=== PATIENT | female | born 1945 | race Caucasian/White ===

== ENCOUNTER 2018-02-11 14:13 | Emergency (ER) | payer MEDICARE, OTHER ==
[~2018-02-11] VITALS: Ht 171.4 cm; Wt 79.5 kg
[~2018-02-11 14:13] MED LIST: BUPR300T PO; CITA20TA4 PO; DICL1SOL3 TOPICAL; LEVO-168 PO; OMEP40CA2 PO
[2018-02-11] MEDS ORDERED: IOHEXOL 350 MG/ML 10 ML VIAL (for RAD DIAG) IVCONTRAST ONE (14:14)
[2018-02-11 14:37] VITALS: BP 176/104; PULSE 98; RESP 18; TEMP 98.1; O2SAT 98
[2018-02-11] MEDS ORDERED: MELO7.5T27 PO (15:46)
[2018-02-11] MEDS ORDERED: SIMV20TA PO (15:46)
[2018-02-11 15:53] VITALS: BP 163/79; PULSE 95; RESP 18; TEMP 98.2; O2SAT 96
[2018-02-11] MEDS ORDERED: ONDANSETRON HCL 4 MG/2 ML VIAL IV PUSH ONE (16:00)
[2018-02-11] MEDS ORDERED: SODIUM CHLOR 0.9% 1000 ML INJ 1,000 ML IV ONE (16:00)
[2018-02-11 16:41] LABS: AUTOMATED NEUTROPHIL # 9.1 TH/MM3 (1.8-7.7); BASOPHIL % 0.4 % (0.0-2.0); EOSINOPHIL # 0.1 TH/MM3 (0-0.4); EOSINOPHIL % 0.5 % (0.0-4.0); HEMATOCRIT 42.1 % (35.0-46.0); LYMPH % 13.5 % (9.0-44.0); LYMPHOCYTE # 1.6 TH/MM3 (1.0-4.8); MEAN CELL VOLUME 97.7 FL (80.0-100.0); MEAN CORPUSCULAR HEMOGLOBIN 32.5 PG (27.0-34.0); MEAN CORPUSCULAR HGB CONC 33.3 % (32.0-36.0); MONO % 6.5 % (0.0-8.0); MONOCYTE # 0.8 TH/MM3 (0-0.9); NEUT % 79.1 % (16.0-70.0); PLATELET COUNT 347 TH/MM3 (150-450); RED BLOOD COUNT 4.31 MIL/MM3 (4.00-5.30); RED CELL DISTRIBUTION WIDTH 12.7 % (11.6-17.2); WHITE BLOOD COUNT 11.5 TH/MM3 (4.0-11.0)
--- NOTE | 2018-02-11 16:42 | PD ---
HPI Chief Complaint: Abdominal Pain Time Seen by Provider: 15:26 Travel History International Travel<30 days: No Contact w/Intl Traveler<30days: No Traveled to known affect area: No History of Present Illness HPI Patient is a 72-year-old female who comes in complaining of lower abdominal cramping with diarrhea and nausea and vomiting. She says she has history of diverticulitis, so this made her nervous. However, she says this does not feel like her diverticulitis. She says she has had about 9 episodes of diarrhea and a few episodes of vomiting. She denies seeing any blood in her stool. She says the pain that she has is really just a cramping to the lower abdomen. She denies fever chills. Last thing she ate was cereal this morning. She denies any urinary symptoms. She has not been on antibiotics recently. Severity is moderate. PFSH Past Medical History Anxiety: Yes Diverticulitis: Yes GERD: Yes Thyroid Disease: Yes Tetanus Vaccination: > 5 Years Influenza Vaccination: No Past Surgical History Cholecystectomy: Yes Eye Surgery: Yes Hysterectomy: Yes Other Surgery: Yes (partial thyroidectomies) Social History Alcohol Use: Yes (2 glasses wine daily) Tobacco Use: No Substance Use: No Allergies-Medications (Allergen,Severity, Reaction): Coded Allergies: tizanidine (Verified Allergy, Severe, liver enzymes are increased, 02/11/18) Reported Meds & Prescriptions Reported Meds & Active Scripts Active Omeprazole 40 Mg Cap 40 Mg PO DAILY Citalopram (Citalopram Hydrobromide) 20 Mg Tab 20 Mg PO DAILY Bupropion HCl ER 24 HR (Bupropion HCl) 300 Mg Tab 300 Mg PO DAILY Levothyroxine (Levothyroxine Sodium) 112 Mcg Tab 112 Mcg PO DAILY Reported Meloxicam 7.5 Mg Tab 7.5 Mg PO DAILY Simvastatin 20 Mg Tab 20 Mg PO DAILY Review of Systems Except as stated in HPI: all other systems reviewed are Neg General / Constitutional: No: Fever, Chills HENT: No: Headaches, Lightheadedness Cardiovascular: No: Chest Pain or Discomfort Respiratory: No: Shortness of Breath Gastrointestinal: Positive: Nausea, Vomiting, Diarrhea, Abdominal Pain Genitourinary: No: Dysuria Skin: No Rash, No Change in Pigmentation Neurologic: No: Weakness, Dizziness Physical Exam Narrative GENERAL: Awake and alert, in no acute distress. SKIN: Focused skin assessment warm/dry. No wounds or signs of infection. HEAD: Atraumatic. Normocephalic. EYES: Pupils equal and round. No scleral icterus. ENT: Mucous membranes pink and moist. NECK: Trachea midline. No JVD. CARDIOVASCULAR: Regular rate and rhythm. No murmur appreciated. RESPIRATORY: No accessory muscle use. Clear to auscultation. Breath sounds equal bilaterally. GASTROINTESTINAL: Abdomen soft, nondistended. Mild tenderness to palpation of the suprapubic area. No rebound or guarding. MUSCULOSKELETAL: No obvious deformities. No clubbing. No cyanosis. No edema. NEUROLOGICAL: Awake and alert. No obvious cranial nerve deficits. Motor grossly within normal limits. Normal speech. PSYCHIATRIC: Appropriate mood and affect; insight and judgment normal. Data Data Last Documented VS Vital Signs Date Time Temp Pulse Resp B/P (MAP) Pulse Ox O2 Delivery O2 Flow Rate FiO2 02/11/18 15:53 98.2 95 18 163/79 (107) 96 Room Air Orders Orders Complete Blood Count With Diff (02/11/18 14:40) Comprehensive Metabolic Panel (02/11/18 14:40) Prothrombin Time / Inr (Pt) (02/11/18 14:40) Act Partial Throm Time (Ptt) (02/11/18 14:40) Lipase (02/11/18 14:40) Urinalysis - C+S If Indicated (02/11/18 14:40) Ct Abd/Pel W Iv Contrast(Rout) (02/11/18 ) Sodium Chlor 0.9% 1000 Ml Inj (Ns 1000 M (02/11/18 16:00) Ondansetron Inj (Zofran Inj) (02/11/18 16:00) Labs Laboratory Tests Test 02/11/18 15:50 [facility] Medical Decision Making Medical Screen Exam Complete: Yes Emergency Medical Condition: Yes Differential Diagnosis Diverticulitis versus UTI versus colitis versus gastroenteritis versus electrolyte abnormality versus dehydration Narrative Course Patient is a 72-year-old female who comes in complaining of abdominal pain, nausea, vomiting, diarrhea. Exam shows some suprapubic tenderness. IV established, labs sent. CT of the abdomen and pelvis ordered. Given IV fluids and Zofran. Patient signed out to Dr. Oliveros to follow up testing and disposition the patient. Diagnosis Primary Impression: Nausea, vomiting and diarrhea Génesis Chambres MD Feb 11, 2018 16:42
[2018-02-11 16:51] LABS: PROTHROMBIN TIME - PATIENT 9.8 SEC (9.8-11.6)
[2018-02-11 17:06] LABS: ALBUMIN 4.3 GM/DL (3.4-5.0); AST (GOT) 19 U/L (15-37); BICARBONATE 26.2 MEQ/L (21.0-32.0); BLOOD UREA NITROGEN 24 MG/DL (7-18); CALCIUM 9.1 MG/DL (8.5-10.1); CHLORIDE 103 MEQ/L (98-107); CREATININE 0.88 MG/DL (0.50-1.00); GLOMERULAR FILTRATION RATE 63 ML/MIN (>89); GLUCOSE,RANDOM 97 MG/DL (74-106); SODIUM (NA) 141 MEQ/L (136-145)
[2018-02-11 17:09] LABS: ALKALINE PHOSPHATASE 109 U/L (45-117); ALT (GPT) 25 U/L (10-53); TOTAL BILIRUBIN ADULT 0.5 MG/DL (0.2-1.0); TOTAL PROTEIN 8.3 GM/DL (6.4-8.2)
--- NOTE | 2018-02-11 18:15 | RADRPT ---
EXAM DATE/TIME: 02/11/2018 17:42 [facility] COMPARISON: No previous studies available for comparison. INDICATIONS : Abdomen pain with diarrhea. IV CONTRAST: 95 cc Omnipaque 350 (iohexol) IV ORAL CONTRAST: No oral contrast ingested. RADIATION DOSE: 10.93 CTDIvol (mGy) MEDICAL HISTORY : Diverticulitis. Gastroesophageal reflux disease. SURGICAL HISTORY : Hysterectomy. Cholecystectomy. ENCOUNTER: Initial ACUITY: 1 day PAIN SCALE: 6/10 LOCATION: Bilateral abdomen TECHNIQUE: Volumetric scanning of the abdomen and pelvis was performed. Using automated exposure control and ad justment of the mA and/or kV according to patient size, radiation dose was kept as low as reasonably achievable to obtain optimal diagnostic quality images. DICOM format image data is available electro nically for review and comparison. FINDINGS: LOWER LUNGS: The visualized lower lungs are clear. LIVER: There are several low density lesions which are around and configuration measures 6 mm and less, too small for further characterization, but statistically probably represent cysts. No biliary ductal di latation. No enhancing masses. Cholecystectomy. SPLEEN: Normal size without lesion. PANCREAS: Within normal limits. KIDNEYS: Normal in size and shape. There is no mass, stone or hydronephrosis. ADRENAL GLANDS: Within normal limits. VASCULAR: There is no aortic aneurysm. BOWEL/MESENTERY: No dilated loops of small or large bowel stop few diverticula in the sigmoid colon without radiograph ic evidence of diverticulitis. Probable lipoma of the cecum. ABDOMINAL WALL: Within normal limits. RETROPERITONEUM: There is no lymphadenopathy. BLADDER: No wall thickening or mass. REPRODUCTIVE: There is an elongated fluid density tubular structure in the right adnexal region which measures 5.2 x 2.9 cm, mean CT density of -3 Hounsfield units. Margins are smooth. There is a calcification seen posterior within this structure. This appears to be along the suspensory ligament of the ovaries guzman ggesting this is ovarian in origin. However, loops of terminal ileum are adjacent and the appendix i s not identified, cannot exclude a mucocele of the appendix. INGUINAL: There is no lymphadenopathy or hernia. MUSCULOSKELETAL: Degenerative changes of the posterior elements of the lower lumbar spine. Anterolisthesis at L4-5. CONCLUSION: 1. Anterolisthesis L4-5 with associated degenerative changes. 2. Scattered small sigmoid diverticula without radiographic evidence of diverticulitis. 3. Tubular low density lesion with calcification measuring 5 cm in the right pelvis. His could repre sent a dermoid of the ovary. However, this is in close approximation to the cecum and the distal sma ll bowel loops; a mucocele of the appendix cannot be excluded. Dante Ding MD on February 11, 2018 at 18:06 Board Certified Radiologist. This report was verified electronically.
[2018-02-11 18:37] LABS: AMORPHOUS SEDIMENT, URINE RARE; BILIRUBIN, URINE NEG (NEG); BLOOD, URINE NEG (NEG); GLUCOSE,URINE NEG (NEG); KETONE, URINE NEG (NEG); MUCUS URINE FEW /lpf (OCC); NITRITE,URINE NEG (NEG); SQUAMOUS EPITHELIAL CELL URINE <1 /hpf (0-5); URINE COLOR LIGHT-YELLOW (YELLW/STRAW); URINE LEUKOCYTE ESTERASE NEG (NEG)
--- NOTE | 2018-02-11 18:49 | PD ---
Physical Exam Date Seen by Provider: Feb 11, 2018 Time Seen by Provider: 18:47 Narrative 72-year-old female came to the emergency room with history of lower abdominal pain for past couple days. She has been having vomiting and diarrhea. She was seen by the previous ER physician. Please refer to her history and physical for further details. Signout was to follow-up on her CAT scan results. CAT scan shows diverticulosis without any signs of diverticulitis. The radiologist noticed a 5 cm cystic structure in the right lower quadrant. He is questioning whether it is originating from the ovary or is a mucocele by the appendix. I discussed the case with the general surgeon Dr. Avelar who recommended an ultrasound which has been ordered. I went and discussed with the patient regarding this finding and ultrasound. Patient told me that she has had hysterectomy done in the 80s during the same time her appendix was taken out. She does have one ovary left and she is not sure which one. I let her know about the ultrasound which is pending at this point. Her UA and rest of the blood test results are back and within normal limits. Data Data Last Documented VS Vital Signs Date Time Temp Pulse Resp B/P (MAP) Pulse Ox O2 Delivery O2 Flow Rate FiO2 02/11/18 20:33 02/11/18 15:53 98.2 95 18 96 Room Air Orders Orders Complete Blood Count With Diff (02/11/18 14:40) Comprehensive Metabolic Panel (02/11/18 14:40) Prothrombin Time / Inr (Pt) (02/11/18 14:40) Act Partial Throm Time (Ptt) (02/11/18 14:40) Lipase (02/11/18 14:40) Urinalysis - C+S If Indicated (02/11/18 14:40) Ct Abd/Pel W Iv Contrast(Rout) (02/11/18 ) Sodium Chlor 0.9% 1000 Ml Inj (Ns 1000 M (02/11/18 16:00) Ondansetron Inj (Zofran Inj) (02/11/18 16:00) Iohexol 350 Inj (Omnipaque 350 Inj) (02/11/18 14:14) Us Pelvis Comp W Transvaginal (02/11/18 ) Ed Discharge Order (02/11/18 20:06) Labs Laboratory Tests Test 02/11/18 15:50 02/11/18 17:30 White Blood Count 11.5 TH/MM3 Red Blood Count 4.31 MIL/MM3 Hemoglobin 14.0 GM/DL Hematocrit 42.1 % Mean Corpuscular Volume 97.7 FL Mean Corpuscular Hemoglobin 32.5 PG Mean Corpuscular Hemoglobin Concent 33.3 % Red Cell Distribution Width 12.7 % Platelet Count 347 TH/MM3 Mean Platelet Volume 8.0 FL Neutrophils (%) (Auto) 79.1 % Lymphocytes (%) (Auto) 13.5 % Monocytes (%) (Auto) 6.5 % Eosinophils (%) (Auto) 0.5 % Basophils (%) (Auto) 0.4 % Neutrophils # (Auto) 9.1 TH/MM3 Lymphocytes # (Auto) 1.6 TH/MM3 Monocytes # (Auto) 0.8 TH/MM3 Eosinophils # (Auto) 0.1 TH/MM3 Basophils # (Auto) 0.0 TH/MM3 CBC Comment DIFF FINAL Differential Comment Prothrombin Time 9.8 SEC Prothromb Time International Ratio 1.0 RATIO Activated Partial Thromboplast Time 26.3 SEC Blood Urea Nitrogen 24 MG/DL Creatinine 0.88 MG/DL Random Glucose 97 MG/DL Total Protein 8.3 GM/DL Albumin 4.3 GM/DL Calcium Level 9.1 MG/DL Alkaline Phosphatase 109 U/L Aspartate Amino Transf (AST/SGOT) 19 U/L Alanine Aminotransferase (ALT/SGPT) 25 U/L Total Bilirubin 0.5 MG/DL Sodium Level 141 MEQ/L Potassium Level 4.2 MEQ/L Chloride Level 103 MEQ/L Carbon Dioxide Level 26.2 MEQ/L Anion Gap 12 MEQ/L Estimat Glomerular Filtration Rate 63 ML/MIN Lipase 220 U/L Urine Color LIGHT-YELLOW Urine Turbidity CLEAR Urine pH 6.0 Urine Specific [place] 1.011 Urine Protein NEG mg/dL Urine Glucose (UA) NEG mg/dL Urine Ketones NEG mg/dL Urine Occult Blood NEG Urine Nitrite NEG Urine Bilirubin NEG Urine Urobilinogen LESS THAN 2.0 MG/DL Urine Leukocyte Esterase NEG Urine RBC 1 /hpf Urine WBC 1 /hpf Urine Squamous Epithelial Cells <1 /hpf Urine Amorphous Sediment RARE Urine Mucus FEW /lpf Microscopic Urinalysis Comment CULT NOT INDICATED MDM Supervised Visit with ABIGAIL: No Narrative Course 8:11 PM ultrasound report came back and the radiologist was not able to identify the abnormal structure seen on the CAT scan. They mentioned that patient did not have any ovaries. At this point I discussed again with Dr. Avelar and he agrees the patient is okay to go home and get an outpatient MRI. She will be discharged home. I discussed the findings and this plan with the patient. She is okay with it. Physician Communication Physician Communication Dr. Avelar Diagnosis Primary Impression: Nausea, vomiting and diarrhea Referrals: Primary Care Physician 3 days Additional Instruction: Please follow-up with your primary care next couple days. Your primary care should consider an outpatient MRI to look into this cystic mass since the ultrasound did not show anything. Return to the ER if condition worsens any other new concerns. Take clear liquid diet for next 24-48 hours and once symptoms subside you can proceed to regular diet. Disposition: 01 DISCHARGE HOME Condition: Stable Ana Luisa Oliveros MD Feb 11, 2018 18:49
--- NOTE | 2018-02-11 20:02 | RADRPT ---
EXAM DATE/TIME: 02/11/2018 19:20 [facility] COMPARISON: No previous studies available for comparison. INDICATIONS : Abnormal CT scan. MEDICAL HISTORY : Diverticulitis. Gastroesophageal reflux disease. Thyroid disease. Anxiety. SURGICAL HISTORY : Cholecystectomy. Hysterectomy. Partial thyroidectomy. Colectomy. Eye surgery. ENCOUNTER: Initial ACUITY: 1 day PAIN SCORE: 0/10 LOCATION: Bilateral pelvis MEASUREMENTS: UTERUS: Surgically absent ENDOMETRIAL STRIPE: RIGHT OVARY: Non visualized LEFT OVARY: Non visualized FINDINGS: The uterus and ovaries are surgically absent. The abnormality identified on recent CT examination is not identified as a separate structure on ultrasound. No free fluid is seen. CONCLUSION: 1. Abnormality on recent CT is not identified sonographically. Postoperative hysterectomy and surgica l removal of ovaries. Sarthak Joshi MD on February 11, 2018 at 19:55 Board Certified Radiologist. This report was verified electronically.
== END 2018-02-11 20:34 | disposition home or self-care (01) ==
LOC: NEPD 14:13
DX: R11.2 Nausea with vomiting, unspecified (principal); R19.7 Diarrhea, unspecified; K57.30 Diverticulosis of large intestine without perforation or abscess without bleeding; E07.9 Disorder of thyroid, unspecified; K21.9 Gastro-esophageal reflux disease without esophagitis
CPT/HCPCS: 74177; 76830; 76856; 80053; 81001; 83690; 85025; 85610; 85730; 96361; 96374; 99284; J2405; J7030; Q9967